=== PATIENT | female | born 1940 | race African-American/Black ===

== ENCOUNTER 2017-11-11 20:12 | Inpatient (IN) ==
[2017-11-11 23:51] LABS: Basophils % 0.3 % (0.0-0.8); Eosinophils # 0.2 10*3/uL (0.0-0.87); Eosinophils % 1.4 % (0.00-10.9); Hematocrit 25.6 VOL% (35.7-47.0); Immature Granulocytes % 0.5 %; Immature Granulocytes Absolute 0.06 #; Lymphocytes # 1.4 10*3/uL (1.4-4.0); Lymphocytes % 11.6 % (21.3-54.2); Mean Corpuscular HGB Conc 31.3 GM/DL (32-36); Mean Corpuscular Hemoglobin 29 PG (27-34); Mean Corpuscular Volume 93.8 FL (87-102); Mean Platelet Volume 9.9 FL (9.6-12.0); Monocytes # 0.9 10*3/uL (0.11-0.8); Monocytes % 7.8 % (1.7-12.7); Neutrophils # 9.3 10*3/uL (1.4-7.4); Neutrophils % 78.4 % (38.7-73.9); Platelet Count 282 T/CUMM (130-400); Red Blood Count 2.73 MC/CUMM (3.8-5.5); Red Cell Distribution Width 12.5 % (9.3-17.3); White Blood Count 11.9 T/CUMM (4-12)
[2017-11-12 00:31] LABS: Calcium 7.9 MG/DL (8.5-10.1)
[2017-11-12 00:38] LABS: Potassium 6.5 MMOL/L (3.5-5.1)
[2017-11-12 01:00] LABS: Sedimentation Rate-Westergren 130 MM/HR (0-30)
[2017-11-12] MEDS ORDERED: SODIUM CHLORIDE 0.9% 1,000 ML IV STA (01:06)
[2017-11-12] MEDS ORDERED: CALCIUM GLUCONATE 1,000 MG in SODIUM CHLORIDE 0.9% 100 ML IV ONE (01:06)
[2017-11-12] MEDS ORDERED: CALCIUM GLUCONATE 1,000 MG/10 ML VIAL IV ONE (01:13)
[2017-11-12] MEDS ORDERED: ACETAMINOPHEN 500 MG TABLET ONE (02:16)
[2017-11-12] MEDS ORDERED: ACETAMINOPHEN 500 MG TABLET PO STA (02:16)
[2017-11-12] MEDS ORDERED: SODIUM CHLORIDE 0.9% 1,000 ML IV SCH (03:03)
[2017-11-12] MEDS ORDERED: SODIUM POLYSTYRENE SULFATE 15 GM/60 ML BOTTLE PO ONE (03:03)
[2017-11-12] MEDS ORDERED: MORPHINE 2 MG/1 ML SYRINGE IV PRN (03:03)
[2017-11-12] MEDS ORDERED: GLUCAGON 1 MG VIAL IM PRN (03:03)
[2017-11-12] MEDS ORDERED: ONDANSETRON 4 MG/2 ML VIAL IV PRN (03:03)
[2017-11-12] MEDS ORDERED: DEXTROSE 50% 25 GM/50 ML VIAL IV PRN (03:03)
[2017-11-12] MEDS: CEFTAROLINE 300 MG in SODIUM CHLORIDE 0.9% 100 ML IV SCH ×2 (04:13→22:26)
[2017-11-12 06:14] LABS: Basophils % 0.3 % (0.0-0.8); Eosinophils # 0.1 10*3/uL (0.0-0.87); Eosinophils % 1.3 % (0.00-10.9); Hematocrit 23.6 VOL% (35.7-47.0); Hemoglobin 7.6 GM/DL (12.0-16.0); Immature Granulocytes % 0.7 %; Immature Granulocytes Absolute 0.08 #; Lymphocytes # 2.1 10*3/uL (1.4-4.0); Lymphocytes % 19.3 % (21.3-54.2); Mean Corpuscular HGB Conc 32.2 GM/DL (32-36); Mean Corpuscular Hemoglobin 30 PG (27-34); Mean Corpuscular Volume 92.2 FL (87-102); Mean Platelet Volume 9.7 FL (9.6-12.0); Monocytes # 0.8 10*3/uL (0.11-0.8); Monocytes % 7.5 % (1.7-12.7); Neutrophils # 7.8 10*3/uL (1.4-7.4); Neutrophils % 70.9 % (38.7-73.9); Platelet Count 275 T/CUMM (130-400); Red Blood Count 2.56 MC/CUMM (3.8-5.5); Red Cell Distribution Width 12.6 % (9.3-17.3); White Blood Count 10.9 T/CUMM (4-12)
[2017-11-12 06:49] LABS: Band Neutrophils 1 % (0-10); Eosinophils 2 % (0-10); Giant Platelets Few; Hypochromasia 1+; Lymphocytes 16 % (20-55); Ovalocytes Slight; Platelet Estimate Adequate; Segmented Neutrophils 71 % (50-85); Total Cells Counted 100
[2017-11-12 07:50] LABS: Calcium 7.7 MG/DL (8.5-10.1); Osmolality,Calculated 288.7 MOS/KG (273-304); Potassium 5.7 MMOL/L (3.5-5.1)
[2017-11-12] MEDS: PANTOPRAZOLE 40 MG TABLET PO SCH (11:02)
[2017-11-12] MEDS: ENOXAPARIN 30 MG/0.3 ML SYRINGE SUBCUT SCH (11:02)
[2017-11-12] MEDS: CARVEDILOL 12.5 MG TABLET PO SCH ×2 (11:02→17:17)
[2017-11-12] MEDS: DOCUSATE SODIUM 100 MG CAPSULE PO SCH ×2 (11:03→21:59)
[2017-11-12] MEDS: INSULIN REGULAR 100 UNIT/ML SUBCUT SCH ×4 (11:03→21:59)
[2017-11-12] MEDS ORDERED: ALBUTEROL/IPRATROPIUM 3 ML NEB RESP TX PRN (14:40)
[2017-11-12] MEDS ORDERED: methylPREDNISolone SOD SUC 125 MG/2 ML VIAL IV ONE (14:40)
[2017-11-12] MEDS ORDERED: FUROSEMIDE 40 MG/4 ML VIAL ONE (14:44)
[2017-11-12] MEDS ORDERED: hydrALAZINE 20 MG/1 ML VIAL IV ONE ×2 (14:46→15:14)
[2017-11-12] MEDS ORDERED: cloNIDine 0.1 MG TABLET PO PRN (14:46)
[2017-11-12] MEDS ORDERED: DOCUSATE SODIUM 100 MG CAPSULE PO PRN (14:46)
[2017-11-12] MEDS ORDERED: hydrALAZINE 20 MG/1 ML VIAL IV PRN (14:46)
[2017-11-12 15:08] LABS: ABG Base Excess 2.8 MMOL/L (-2.5-2.5); ABG HCO3 26.8 MMOL/L (20-26); ABG Oxygen Saturation 89.8 % (95-100); ABG PH 7.343 (7.35-7.45); ABG PO2 60.2 MM HG (80-95); ABG TCO2 27.2 MMOL/L (23-27); Allen Test Positive
[2017-11-12] MEDS ORDERED: NITROGLYCERIN 2% OINT 1 INCH/GM PACK TOP ONE (15:13)
[2017-11-12] MEDS ORDERED: MORPHINE 2 MG/1 ML SYRINGE IV ONE (15:16)
[2017-11-12] MEDS ORDERED: FUROSEMIDE 40 MG/4 ML VIAL IV ONE ×2 (15:30→16:00)
[2017-11-12 15:47] LABS: Calcium 8.4 MG/DL (8.5-10.1); Osmolality,Calculated 292.8 MOS/KG (273-304); Potassium 5.6 MMOL/L (3.5-5.1)
[2017-11-12 15:55] LABS: Apearance,Urine Slightly Hazy (Clear); Bilirubin,Urine Negative (Negative); Blood, Urine Moderate mg/dL (Negative); Glucose,Urine (UA) Negative (Negative); Ketones,Urine Negative (Negative); Nitrite,Urine Negative (Negative); Protein,Urine Negative; RBC,Urine <1 /HPF (0-4); Squamous Epithelial Cell,Urine Occasional /HPF (0-10); Urine Color Yellow (Yellow); Urine Specific Gravity 1.009 (1.001-1.035); Urine Urobilinogen < 2.0 EU/DL (0.2-1.0)
[2017-11-12] MEDS: glipiZIDE 5 MG TABLET PO SCH (17:17)
[2017-11-12] MEDS ORDERED: INSULIN DETEMIR 100 UNIT/ML SUBCUT SCH (21:00)
[2017-11-12] MEDS ORDERED: LISINOPRIL 10 MG TABLET PO SCH (21:00)
[2017-11-12] MEDS ORDERED: NON-FORMULARY MEDICATION (Esomeprazole Magnesium [Esomeprazole] 40 MG) PO SCH (21:00)
[2017-11-12] MEDS: GABAPENTIN 600 MG TABLET PO SCH (21:58)
[2017-11-12] MEDS: FERROUS SULFATE 325 MG TABLET PO SCH (21:59)
[2017-11-12] MEDS: ASPIRIN EC 325 MG TABLET PO SCH (21:59)
[2017-11-12] MEDS: ROSUVASTATIN 10 MG TABLET PO SCH (21:59)
[2017-11-12] MEDS: INSULIN GLARGINE 100 UNIT/ML SUBCUT SCH (22:01)
[2017-11-12] MEDS: FUROSEMIDE 100 MG/10 ML VIAL IV SCH (22:02)
[2017-11-13 03:44] LABS: ABG HCO3 27.1 MMOL/L (20-26); ABG Oxygen Saturation 99.2 % (95-100); ABG PCO2 47.4 MM HG (35-48); ABG PH 7.387 (7.35-7.45); ABG TCO2 26.6 MMOL/L (23-27); Allen Test Positive
[2017-11-13 07:44] LABS: Basophils % 0.1 % (0.0-0.8); Hematocrit 26.3 VOL% (35.7-47.0); Hemoglobin 8.3 GM/DL (12.0-16.0); Immature Granulocytes % 0.7 %; Immature Granulocytes Absolute 0.11 #; Lymphocytes # 0.9 10*3/uL (1.4-4.0); Lymphocytes % 5.8 % (21.3-54.2); Mean Corpuscular HGB Conc 31.6 GM/DL (32-36); Mean Corpuscular Hemoglobin 30 PG (27-34); Mean Corpuscular Volume 94.6 FL (87-102); Mean Platelet Volume 9.9 FL (9.6-12.0); Monocytes # 0.3 10*3/uL (0.11-0.8); Neutrophils # 13.6 10*3/uL (1.4-7.4); Neutrophils % 91.4 % (38.7-73.9); Platelet Count 292 T/CUMM (130-400); Red Blood Count 2.78 MC/CUMM (3.8-5.5); Red Cell Distribution Width 12.2 % (9.3-17.3); White Blood Count 14.9 T/CUMM (4-12)
[2017-11-13] MEDS: INSULIN REGULAR 100 UNIT/ML SUBCUT SCH ×4 (08:21→22:00)
[2017-11-13] MEDS: FUROSEMIDE 100 MG/10 ML VIAL IV SCH ×2 (08:21→15:31)
[2017-11-13] MEDS: CEFTAROLINE 300 MG in SODIUM CHLORIDE 0.9% 100 ML IV SCH ×2 (08:21→22:05)
[2017-11-13 08:27] LABS: Alanine Aminotransferase 30 U/L (13-56); Albumin 2.2 G/DL (3.4-5.0); Alkaline Phosphatase 123 U/L (45-117); Aspartate Amino Transferase 64 U/L (0-37); Bilirubin,Total < 0.39 MG/DL (0.2-1.0); Blood Urea Nitrogen 54 MG/DL (7-18); Calcium 8.6 MG/DL (8.5-10.1); Glucose 357 MG/DL (74-106); Osmolality,Calculated 303.7 MOS/KG (273-304); Potassium 4.9 MMOL/L (3.5-5.1); Sodium 138 MMOL/L (136-145); Total Protein 7.2 G/DL (6.4-8.3)
[2017-11-13] MEDS ORDERED: FUROSEMIDE 80 MG TABLET PO SCH (09:00)
[2017-11-13] MEDS ORDERED: ROPIVACAINE 0.5% 30 ML VIAL ONE (09:22)
[2017-11-13] MEDS: CIPROFLOXACIN 500 MG TABLET PO SCH (11:28)
[2017-11-13] MEDS: MULTIVITAMIN (CENTRUM) TABLET PO SCH (11:29)
[2017-11-13] MEDS: ENOXAPARIN 30 MG/0.3 ML SYRINGE SUBCUT SCH (11:29)
[2017-11-13] MEDS: DOCUSATE SODIUM 100 MG CAPSULE PO SCH ×2 (11:29→22:04)
[2017-11-13] MEDS: PANTOPRAZOLE 40 MG TABLET PO SCH (11:29)
[2017-11-13] MEDS: metroNIDAZOLE 500 MG TABLET PO SCH ×2 (11:29→22:05)
[2017-11-13] MEDS: CARVEDILOL 12.5 MG TABLET PO SCH ×2 (11:29→17:11)
[2017-11-13] MEDS: GABAPENTIN 600 MG TABLET PO SCH ×3 (11:29→22:05)
[2017-11-13 11:36] LABS: Band Neutrophils 1 % (0-10); Hypochromasia 1+; Lymphocytes 2 % (20-55); Platelet Estimate Adequate; Segmented Neutrophils 95 % (50-85); Target Cells Slight; Total Cells Counted 100
[2017-11-13] MEDS: glipiZIDE 5 MG TABLET PO SCH (17:11)
[2017-11-13] MEDS: INSULIN GLARGINE 100 UNIT/ML SUBCUT SCH (22:00)
[2017-11-13] MEDS: ROSUVASTATIN 10 MG TABLET PO SCH (22:04)
[2017-11-13] MEDS: ASPIRIN EC 325 MG TABLET PO SCH (22:05)
[2017-11-13] MEDS: FERROUS SULFATE 325 MG TABLET PO SCH (22:05)
[2017-11-14 04:26] LABS: Basophils % 0.2 % (0.0-0.8); Eosinophils % 0.1 % (0.00-10.9); Hematocrit 24.6 VOL% (35.7-47.0); Hemoglobin 7.7 GM/DL (12.0-16.0); Immature Granulocytes % 0.6 %; Immature Granulocytes Absolute 0.11 #; Lymphocytes # 1.3 10*3/uL (1.4-4.0); Lymphocytes % 6.9 % (21.3-54.2); Mean Corpuscular HGB Conc 31.3 GM/DL (32-36); Mean Corpuscular Hemoglobin 29 PG (27-34); Mean Corpuscular Volume 93.9 FL (87-102); Mean Platelet Volume 9.8 FL (9.6-12.0); Monocytes # 0.9 10*3/uL (0.11-0.8); Neutrophils # 15.9 10*3/uL (1.4-7.4); Neutrophils % 87.2 % (38.7-73.9); Platelet Count 310 T/CUMM (130-400); Red Blood Count 2.62 MC/CUMM (3.8-5.5); Red Cell Distribution Width 12.4 % (9.3-17.3); White Blood Count 18.2 T/CUMM (4-12)
[2017-11-14 04:56] LABS: Band Neutrophils 21 % (0-10); Lymphocytes 8 % (20-55); Segmented Neutrophils 69 % (50-85); Total Cells Counted 100
[2017-11-14 05:09] LABS: Calcium 8.4 MG/DL (8.5-10.1); Osmolality,Calculated 299.5 MOS/KG (273-304); Potassium 4.2 MMOL/L (3.5-5.1)
[2017-11-14] MEDS: INSULIN REGULAR 100 UNIT/ML SUBCUT SCH ×4 (07:33→22:11)
[2017-11-14] MEDS: DOCUSATE SODIUM 100 MG CAPSULE PO SCH ×2 (08:27→21:54)
[2017-11-14] MEDS: CARVEDILOL 12.5 MG TABLET PO SCH ×2 (08:27→17:21)
[2017-11-14] MEDS: GABAPENTIN 600 MG TABLET PO SCH ×3 (08:27→21:54)
[2017-11-14] MEDS: MULTIVITAMIN (CENTRUM) TABLET PO SCH (08:27)
[2017-11-14] MEDS: metroNIDAZOLE 500 MG TABLET PO SCH ×2 (08:27→21:54)
[2017-11-14] MEDS: CIPROFLOXACIN 500 MG TABLET PO SCH (08:27)
[2017-11-14] MEDS: PANTOPRAZOLE 40 MG TABLET PO SCH (08:27)
[2017-11-14] MEDS: ENOXAPARIN 30 MG/0.3 ML SYRINGE SUBCUT SCH (08:28)
[2017-11-14] MEDS: CEFTAROLINE 300 MG in SODIUM CHLORIDE 0.9% 100 ML IV SCH ×2 (08:28→21:54)
[2017-11-14] MEDS: FUROSEMIDE 100 MG/10 ML VIAL IV SCH ×2 (08:28→15:15)
[2017-11-14] MEDS: SODIUM HYPOCHLORITE 0.25% IRRIG 473 ML BOTTLE TOP SCH (09:58)
[2017-11-14] MEDS: glipiZIDE 5 MG TABLET PO SCH (17:21)
[2017-11-14] MEDS: ASPIRIN EC 325 MG TABLET PO SCH (21:54)
[2017-11-14] MEDS: FERROUS SULFATE 325 MG TABLET PO SCH (21:54)
[2017-11-14] MEDS: ROSUVASTATIN 10 MG TABLET PO SCH (22:11)
[2017-11-14] MEDS: INSULIN GLARGINE 100 UNIT/ML SUBCUT SCH (22:11)
[2017-11-15] MEDS: CARVEDILOL 12.5 MG TABLET PO SCH ×2 (08:08→17:21)
[2017-11-15] MEDS: FUROSEMIDE 100 MG/10 ML VIAL IV SCH ×2 (08:08→17:21)
[2017-11-15] MEDS: INSULIN REGULAR 100 UNIT/ML SUBCUT SCH ×4 (11:06→21:55)
[2017-11-15] MEDS: GABAPENTIN 600 MG TABLET PO SCH ×3 (11:20→21:54)
[2017-11-15] MEDS: CIPROFLOXACIN 500 MG TABLET PO SCH (11:21)
[2017-11-15] MEDS: metroNIDAZOLE 500 MG TABLET PO SCH ×2 (11:21→21:55)
[2017-11-15] MEDS: MULTIVITAMIN (CENTRUM) TABLET PO SCH (11:21)
[2017-11-15] MEDS: DOCUSATE SODIUM 100 MG CAPSULE PO SCH ×2 (11:21→21:54)
[2017-11-15] MEDS: SODIUM HYPOCHLORITE 0.25% IRRIG 473 ML BOTTLE TOP SCH (11:21)
[2017-11-15] MEDS: PANTOPRAZOLE 40 MG TABLET PO SCH (11:21)
[2017-11-15] MEDS: ENOXAPARIN 30 MG/0.3 ML SYRINGE SUBCUT SCH (11:21)
[2017-11-15] MEDS: CEFTAROLINE 300 MG in SODIUM CHLORIDE 0.9% 100 ML IV SCH ×2 (12:28→22:25)
[2017-11-15] MEDS: glipiZIDE 5 MG TABLET PO SCH (17:20)
[2017-11-15] MEDS: FERROUS SULFATE 325 MG TABLET PO SCH (21:53)
[2017-11-15] MEDS: ROSUVASTATIN 10 MG TABLET PO SCH (21:54)
[2017-11-15] MEDS: ASPIRIN EC 325 MG TABLET PO SCH (21:54)
[2017-11-15] MEDS: INSULIN GLARGINE 100 UNIT/ML SUBCUT SCH (21:56)
[2017-11-16] MEDS: INSULIN REGULAR 100 UNIT/ML SUBCUT SCH ×4 (07:37→21:45)
[2017-11-16] MEDS: DOCUSATE SODIUM 100 MG CAPSULE PO SCH ×2 (08:19→21:20)
[2017-11-16] MEDS: CEFTAROLINE 300 MG in SODIUM CHLORIDE 0.9% 100 ML IV SCH ×2 (08:19→21:20)
[2017-11-16] MEDS: metroNIDAZOLE 500 MG TABLET PO SCH ×2 (08:19→21:20)
[2017-11-16] MEDS: ENOXAPARIN 30 MG/0.3 ML SYRINGE SUBCUT SCH (08:19)
[2017-11-16] MEDS: GABAPENTIN 600 MG TABLET PO SCH ×3 (08:19→21:20)
[2017-11-16] MEDS: PANTOPRAZOLE 40 MG TABLET PO SCH (08:20)
[2017-11-16] MEDS: MULTIVITAMIN (CENTRUM) TABLET PO SCH (08:20)
[2017-11-16] MEDS: CIPROFLOXACIN 500 MG TABLET PO SCH (08:20)
[2017-11-16] MEDS: SODIUM HYPOCHLORITE 0.25% IRRIG 473 ML BOTTLE TOP SCH (08:20)
[2017-11-16] MEDS: FUROSEMIDE 100 MG/10 ML VIAL IV SCH ×2 (08:20→15:15)
[2017-11-16] MEDS: CARVEDILOL 12.5 MG TABLET PO SCH ×2 (08:20→16:49)
[2017-11-16] MEDS: glipiZIDE 5 MG TABLET PO SCH (16:49)
[2017-11-16] MEDS: ROSUVASTATIN 10 MG TABLET PO SCH (21:20)
[2017-11-16] MEDS: ASPIRIN EC 325 MG TABLET PO SCH (21:20)
[2017-11-16] MEDS: FERROUS SULFATE 325 MG TABLET PO SCH (21:20)
[2017-11-16] MEDS: INSULIN GLARGINE 100 UNIT/ML SUBCUT SCH (21:45)
[2017-11-17 03:38] LABS: Basophils % 0.3 % (0.0-0.8); Eosinophils # 0.2 10*3/uL (0.0-0.87); Hematocrit 23.7 VOL% (35.7-47.0); Hemoglobin 7.4 GM/DL (12.0-16.0); Immature Granulocytes % 1.5 %; Immature Granulocytes Absolute 0.18 #; Lymphocytes # 2.1 10*3/uL (1.4-4.0); Lymphocytes % 17.8 % (21.3-54.2); Mean Corpuscular HGB Conc 31.2 GM/DL (32-36); Mean Corpuscular Hemoglobin 29 PG (27-34); Mean Corpuscular Volume 92.9 FL (87-102); Monocytes # 0.9 10*3/uL (0.11-0.8); Monocytes % 7.8 % (1.7-12.7); Neutrophils # 8.3 10*3/uL (1.4-7.4); Neutrophils % 70.6 % (38.7-73.9); Platelet Count 299 T/CUMM (130-400); Red Blood Count 2.55 MC/CUMM (3.8-5.5); Red Cell Distribution Width 12.6 % (9.3-17.3); White Blood Count 11.7 T/CUMM (4-12)
[2017-11-17 04:04] LABS: Calcium 8.6 MG/DL (8.5-10.1); Osmolality,Calculated 292.5 MOS/KG (273-304); Potassium 4.1 MMOL/L (3.5-5.1)
[2017-11-17] MEDS: INSULIN REGULAR 100 UNIT/ML SUBCUT SCH ×3 (08:33→17:10)
[2017-11-17] MEDS: CEFTAROLINE 300 MG in SODIUM CHLORIDE 0.9% 100 ML IV SCH (09:29)
[2017-11-17] MEDS: metroNIDAZOLE 500 MG TABLET PO SCH (09:30)
[2017-11-17] MEDS: GABAPENTIN 600 MG TABLET PO SCH ×2 (09:30→15:40)
[2017-11-17] MEDS: ENOXAPARIN 30 MG/0.3 ML SYRINGE SUBCUT SCH (09:30)
[2017-11-17] MEDS: FUROSEMIDE 100 MG/10 ML VIAL IV SCH ×2 (09:30→16:18)
[2017-11-17] MEDS: PANTOPRAZOLE 40 MG TABLET PO SCH (09:30)
[2017-11-17] MEDS: CIPROFLOXACIN 500 MG TABLET PO SCH (09:30)
[2017-11-17] MEDS: MULTIVITAMIN (CENTRUM) TABLET PO SCH (09:30)
[2017-11-17] MEDS: CARVEDILOL 12.5 MG TABLET PO SCH ×2 (09:31→17:15)
[2017-11-17] MEDS: DOCUSATE SODIUM 100 MG CAPSULE PO SCH (09:31)
[2017-11-17] MEDS: SODIUM HYPOCHLORITE 0.25% IRRIG 473 ML BOTTLE TOP SCH (10:40)
[2017-11-17 11:18] VITALS: BP 137/92
[2017-11-17] MEDS: glipiZIDE 5 MG TABLET PO SCH (17:39)
== END 2017-11-17 17:35 | DRG 987 ==
LOC: N.ED 20:12 → N.EDINP 11-12 01:27 → SUATTDRO 11-12 01:27 → N.2E 11-12 02:34 → N.ICU 11-12 15:10 → N.3E 11-14 16:24
PROVIDERS: ADMIT Family Medicine; ATTEND Internal Medicine Infectious Disease